=== PATIENT | female | born 1940 | race Caucasian/White ===

== ENCOUNTER 2017-01-27 15:07 | Emergency (ER) | payer MEDICARE ==
[~2017-01-27] VITALS: Ht 162.6 cm; Wt 56.0 kg
[~2017-01-27 15:07] MED LIST: ACCUPRIL5 MG PO; AMLODIPINE5 MG PO; ASPIRIN EC325 MG PO; DILTIAZEM180 M1 PO; DILTIAZEM90 M1 PO; METAMUCIL28 % PO; NITROSTAT0.4 MG SL; PRAVASTATIN SOD80 MG PO; PRAVASTATIN10 MG PO; PREMARIN0.625 MG PO; QUINAPRIL40 MG PO; WARFARIN5 MG PO; WARFARIN7.5 MG PO
[2017-01-27] MEDS ORDERED: DOXYCYC MONO100 M2 PO (16:07)
[2017-01-27 16:15] VITALS: BP 135/77
[2017-01-27] MEDS ORDERED: CEPHALEXIN500 MG PO (16:19)
[2017-01-27] MEDS ORDERED: DILT-XR180 MG PO (16:23)
[2017-01-27] MEDS ORDERED: QUINAPRIL HCL40 MG PO (16:24)
[2017-01-27] MEDS ORDERED: PRAVASTATIN SOD20 MG PO (16:24)
== END 2017-01-27 16:15 | disposition home or self-care (01) ==
LOC: ED 15:07
DX: S61.011A Laceration without foreign body of right thumb without damage to nail, initial encounter (principal); L08.9 Local infection of the skin and subcutaneous tissue, unspecified; R22.31 Localized swelling, mass and lump, right upper limb; W26.0XXA Contact with knife, initial encounter; Y93.K3 Activity, grooming and shearing an animal; Y92.009 Unspecified place in unspecified non-institutional (private) residence as the place of occurrence of the external cause

== ENCOUNTER 2018-12-21 22:47 | Emergency (ER) | payer MEDICARE ==
[~2018-12-21] VITALS: Ht 162.6 cm; Wt 135.0 kg
[~2018-12-21 22:47] MED LIST changes: +CEPHALEXIN500 MG PO; +DILT-XR180 MG PO; +DOXYCYC MONO100 M2 PO; +PRAVASTATIN SOD20 MG PO; +QUINAPRIL HCL40 MG PO
[2018-12-21 23:48] LABS: INTERNATIONAL NORMALIZED RATIO 2.2 RATIO (0.7-1.3)
[2018-12-22] MEDS ORDERED: ASPIRIN81 MG PO (00:48)
[2018-12-22 01:30] VITALS: BP 132/64
== END 2018-12-22 01:04 | disposition home or self-care (01) ==
LOC: ED 22:47
PROVIDERS: Family Medicine
DX: S51.811A Laceration without foreign body of right forearm, initial encounter (principal); W45.8XXA Other foreign body or object entering through skin, initial encounter; Y92.009 Unspecified place in unspecified non-institutional (private) residence as the place of occurrence of the external cause; I10 Essential (primary) hypertension; Z79.01 Long term (current) use of anticoagulants; Z79.899 Other long term (current) drug therapy

== ENCOUNTER 2023-08-23 09:46 | Inpatient (IN) | payer MEDICARE ==
[~2023-08-23] VITALS: Ht 162.6 cm; Wt 60.0 kg
[2023-08-23] VITALS (29 sets, daily range): BP systolic 74–161; BP diastolic 36–92
[~2023-08-23 09:46] MED LIST changes: +ASPIRIN81 MG PO
[2023-08-23] MEDS ORDERED: SODIUM CHLORIDE 0.9% 1,000 ML IV ONE ×2 (10:05→11:15)
[2023-08-23] MEDS ORDERED: DILTIAZEM HCL 125 MG in SODIUM CHLORIDE 0.9% 100 ML IV ONE (10:25)
[2023-08-23] MEDS ORDERED: SODIUM CHLORIDE 0.9% 500 ML IV ONE (10:25)
[2023-08-23 10:39] LABS: BASO% 1.1 % (0-3); EOS% 1.3 % (0-8); HEMATOCRIT 35.2 % (37.0-47.0); HEMOGLOBIN 11.2 g/dl (12.0-16.0); IMMATURE GRANULOCYTES 0.1 % (0.0-5.0); LYMPH% 18.8 % (15-41); MEAN CELL VOLUME 96.2 fL CALC (80.0-100.0); MEAN CORPUSCULAR HGB 30.6 pG CALC (26.0-32.0); MEAN CORPUSCULAR HGB CONC 31.8 g/dL CAL (32.0-36.0); MONO% 7.1 % (2-13); NEUT# 5.98 thou/uL (2.00-7.15); NEUT% 71.6 % (42-76); RED BLOOD COUNT 3.66 mill/uL (4.20-5.60); RED CELL DISTRI WIDTH 15.4 % (11.5-15.5)
[2023-08-23 10:50] LABS: ALBUMIN 3.5 g/dL (3.2-5.0); CREATININE 1.2 mg/dL (0.5-1.0); TOTAL PROTEIN 6.8 g/dL (6.3-8.2)
[2023-08-23 10:59] LABS: BILIRUBIN, TOTAL 1.1 mg/dL (0.02-1.3); POTASSIUM 2.4 mmol/l (3.5-5.1)
[2023-08-23] MEDS ORDERED: POTASSIUM CHLORIDE 20MEQ 100 ML IV ONE ×2 (11:00)
[2023-08-23] MEDS ORDERED: MAGNESIUM SULFATE HEPTAHYDRATE 50 ML IV ONE (11:00)
[2023-08-23 11:20] LABS: TSH, 3RD GENERATION 4.91 uIU/mL (0.47 - 4.68)
[2023-08-23] MEDS ORDERED: CRESTOR10 MG PO (12:24)
[2023-08-23] MEDS ORDERED: ACETAMINOPHEN 325 MG/TAB PO PRN (12:30)
[2023-08-23] MEDS ORDERED: MAGNESIUM HYDROXIDE 30 ML UDC PO PRN (12:30)
[2023-08-23 12:31] LABS: URINE BILIRUBIN - DIPSTICK Negative (NEGATIVE); URINE BLOOD DIPSTICK Negative (NEGATIVE); URINE GLUCOSE - DIPSTICK Negative (NEGATIVE); URINE KETONE Negative (NEGATIVE); URINE LEUK ESTERASE Trace (NEGATIVE); URINE NITRITE - DIPSTICK Negative (Negative); URINE PH 6.5 (4.5-8.0); URINE PROTEIN - DIPSTICK Negative (NEG-TRACE); URINE UROBILINOGEN - DIPSTICK 0.2 E.U./dL (0.2)
[2023-08-23 12:35] LABS: URINE COLOR Yellow
[2023-08-23] MEDS ORDERED: LACTATED RINGER'S 1,000 ML IV PRN (12:35)
[2023-08-23] MEDS ORDERED: VANCOMYCIN HCL 125 MG/CAP PO SCH (13:00)
[2023-08-23 13:08] LABS: INTERNATIONAL NORMALIZED RATIO 1.2 RATIO (0.7-1.3); PROTHROMBIN TIME 10.9 SECONDS (9.0-12.5)
[2023-08-23] MEDS ORDERED: METOPROLOL TARTRATE 50 MG/TAB PO SCH (13:30)
[2023-08-23] MEDS ORDERED: warFARIN SODIUM 3 MG/TAB PO SCH (15:00)
[2023-08-23] MEDS ORDERED: POTASSIUM CHLORIDE 20 MEQ/TAB PO SCH (17:35)
[2023-08-23] MEDS ORDERED: DILTIAZEM HCL 125 MG in SODIUM CHLORIDE 0.9% 100 ML IV PRN (17:40)
[2023-08-23] MEDS ORDERED: SODIUM CHLORIDE 0.9% 500 ML IV SCH (17:40)
[2023-08-23] MEDS ORDERED: ENOXAPARIN SODIUM 60 MG/0.6 ML SYR SC SCH (19:00)
[2023-08-23] MEDS ORDERED: DONEPEZIL HCL 5 MG/TAB PO SCH (21:00)
[2023-08-24] VITALS (11 sets, daily range): BP systolic 115–151; BP diastolic 55–104
[2023-08-24] MEDS ORDERED: LEVOTHYROXINE SODIUM 25 MCG/TAB PO SCH (06:00)
[2023-08-24 06:39] LABS: BASO% 1.2 % (0-3); EOS% 3.6 % (0-8); IMMATURE GRANULOCYTES 0.2 % (0.0-5.0); LYMPH% 23.1 % (15-41); MEAN CELL VOLUME 97.1 fL CALC (80.0-100.0); MEAN CORPUSCULAR HGB 31.5 pG CALC (26.0-32.0); MEAN CORPUSCULAR HGB CONC 32.5 g/dL CAL (32.0-36.0); MONO% 9.7 % (2-13); NEUT# 3.66 thou/uL (2.00-7.15); NEUT% 62.2 % (42-76); RED BLOOD COUNT 2.76 mill/uL (4.20-5.60); RED CELL DISTRI WIDTH 15.5 % (11.5-15.5)
[2023-08-24 06:56] LABS: HEMATOCRIT 26.8 % (37.0-47.0); HEMOGLOBIN 8.7 g/dl (12.0-16.0)
[2023-08-24 07:02] LABS: CHOLESTEROL HDL RATIO 2.5 (<4.4 (CALC)); CREATININE 0.9 mg/dL (0.5-1.0)
[2023-08-24 07:10] LABS: ALBUMIN 2.5 g/dL (3.2-5.0); BILIRUBIN, TOTAL 0.6 mg/dL (0.02-1.3); MAGNESIUM 2.1 mg/dL (1.6-2.3); TOTAL PROTEIN 5.2 g/dL (6.3-8.2)
[2023-08-24 07:21] LABS: INTERNATIONAL NORMALIZED RATIO 1.2 RATIO (0.7-1.3)
[2023-08-24] MEDS ORDERED: TAMSULOSIN HCL 0.4 MG CAP PO SCH (08:00)
[2023-08-24 08:30] LABS: POTASSIUM 2.7 mmol/l (3.5-5.1)
[2023-08-24] MEDS ORDERED: LOSARTAN Potassium 25 MG/TAB PO SCH (09:00)
[2023-08-24] MEDS ORDERED: DILTIAZEM HCl COATED BEADS 180 MG/CAP PO SCH (09:00)
[2023-08-24] MEDS ORDERED: POTASSIUM CHLORIDE 20MEQ 100 ML IV SCH (10:30)
[2023-08-24] MEDS ORDERED: POTASSIUM CHLORIDE 20 MEQ/TAB PO SCH (12:30)
[2023-08-24 12:40] LABS: HEMATOCRIT 30.9 % (37.0-47.0); HEMOGLOBIN 9.3 g/dl (12.0-16.0)
[2023-08-24] MEDS ORDERED: ALPRAZolam 0.5 MG/TAB PO PRN (16:30)
[2023-08-25] VITALS (11 sets, daily range): BP systolic 104–146; BP diastolic 44–92
[2023-08-25] MEDS ORDERED: IPRATROPIUM-Albuterol 0.5MG-2.5MG/3 ML IN PRN (01:35)
[2023-08-25 07:00] LABS: BASO% 0.8 % (0-3); EOS% 1.4 % (0-8); HEMATOCRIT 27.3 % (37.0-47.0); HEMOGLOBIN 8.7 g/dl (12.0-16.0); IMMATURE GRANULOCYTES 0.4 % (0.0-5.0); MEAN CELL VOLUME 97.5 fL CALC (80.0-100.0); MEAN CORPUSCULAR HGB 31.1 pG CALC (26.0-32.0); MEAN CORPUSCULAR HGB CONC 31.9 g/dL CAL (32.0-36.0); MONO% 6.3 % (2-13); NEUT# 5.41 thou/uL (2.00-7.15); NEUT% 74.1 % (42-76); RED BLOOD COUNT 2.8 mill/uL (4.20-5.60); RED CELL DISTRI WIDTH 15.6 % (11.5-15.5)
[2023-08-25 07:23] LABS: INTERNATIONAL NORMALIZED RATIO 1.2 RATIO (0.7-1.3)
[2023-08-25 07:24] LABS: ALBUMIN 2.4 g/dL (3.2-5.0); BILIRUBIN, TOTAL 0.6 mg/dL (0.02-1.3); CREATININE 0.8 mg/dL (0.5-1.0); MAGNESIUM 1.9 mg/dL (1.6-2.3); TOTAL PROTEIN 5.1 g/dL (6.3-8.2)
[2023-08-25 07:42] LABS: POTASSIUM 3.4 mmol/l (3.5-5.1)
[2023-08-25 07:43] LABS: PROTHROMBIN TIME 11.6 SECONDS (9.0-12.5)
[2023-08-25] MEDS ORDERED: SYNTHROID25 MCG PO (09:24)
[2023-08-25] MEDS ORDERED: DILTIAZEM HCL180 MG PO (09:24)
== END 2023-08-25 10:54 | disposition home health service (06) | DRG 310 ==
LOC: ED 09:46 → ED-I 11:40 → ED 11:57 → ICU 11:58
PROVIDERS: Family Medicine; ADMIT Student in an Organized Health Care Education/Training Program; ATTEND Student in an Organized Health Care Education/Training Program
DX: I48.91 Unspecified atrial fibrillation (principal); E87.6 Hypokalemia; E86.0 Dehydration; R19.7 Diarrhea, unspecified; E86.1 Hypovolemia; I10 Essential (primary) hypertension; F03.90 Unspecified dementia, unspecified severity, without behavioral disturbance, psychotic disturbance, mood disturbance, and anxiety; E78.5 Hyperlipidemia, unspecified; E03.9 Hypothyroidism, unspecified; Z86.73 Personal history of transient ischemic attack (TIA), and cerebral infarction without residual deficits; Z90.49 Acquired absence of other specified parts of digestive tract; Z89.612 Acquired absence of left leg above knee; Z79.01 Long term (current) use of anticoagulants; Z20.822 Contact with and (suspected) exposure to COVID-19
CPT/HCPCS: J1650; J3475